=== PATIENT | male | born 1990 | race Two or more races ===

== ENCOUNTER → 2023-04-12 | Emergency (ER) | payer BC ==
[~2023-04-12] VITALS: Ht 188 cm; Wt 122.5 kg
[~2023-04-12] MED LIST: DICLOFENAC POTA50 MG PO; PANTOPRAZOLE SO40 MG PO; ZANAFLEX2 M1 PO
== END | disposition home or self-care (01) ==
LOC: ER 18:10
DX: M62.830 Muscle spasm of back (principal); Z88.8 Allergy status to other drugs, medicaments and biological substances